=== PATIENT | female | born 1970 | race Caucasian/White ===

== ENCOUNTER 2017-12-18 05:20 | Inpatient (IN) | payer OTHER ==
[2017-12-18] MEDS ORDERED: DEXAMETHASONE 4 MG/ML 1 ML INJ ×2 (07:00→07:58)
[2017-12-18] MEDS ORDERED: CEFAZOLIN 1 GM INJ (07:00)
[2017-12-18] MEDS ORDERED: LIDOCAINE 2% (SDV) 5 ML INJ (07:00)
[2017-12-18] MEDS ORDERED: PROPOFOL 200 MG INJ (07:00)
[2017-12-18] MEDS ORDERED: morphine SULFATE/PF (10 MG/10 ML) INJ (07:06)
[2017-12-18] MEDS ORDERED: BUPIVACAINE 0.75%/DEXT (SPINAL) 2 ML INJ (07:06)
[2017-12-18] MEDS ORDERED: MIDAZOLAM 1 MG/ML 2 ML INJ (07:11)
[2017-12-18] MEDS ORDERED: ONDANSETRON 4 MG INJ (08:52)
[2017-12-18] MEDS ORDERED: SUGAMMADEX SODIUM 200 MG/2 ML VIAL IV (08:58)
[2017-12-18] MEDS ORDERED: EPHEDrine SULFATE 50 MG/5 ML SYG IV (09:30)
[2017-12-18] MEDS ORDERED: DIPHENHYDRAMINE 50 MG INJ IV (09:30)
[2017-12-18] MEDS ORDERED: HYDROmorphONE 0.5 MG/0.5 ML SYG IV (09:30)
[2017-12-18] MEDS ORDERED: hydrALAzine 20 MG INJ IV (09:30)
[2017-12-18] MEDS ORDERED: FENTAnyl 50 MCG/ML VIAL IV ×3 (09:30)
[2017-12-18] MEDS ORDERED: LABETALOL HCL 20MG INJ IV (09:30)
[2017-12-18] MEDS ORDERED: HYDROCODONE/APAP (5/325) TAB PO (09:30)
[2017-12-18] MEDS ORDERED: MEPERIDINE 25 MG INJ IV (09:30)
[2017-12-18] MEDS ORDERED: KETOROLAC 30 MG INJ IV (09:30)
[2017-12-18] MEDS ORDERED: ZOLPIDEM 5 MG TAB PO (09:30)
[2017-12-18] MEDS ORDERED: NALOXONE (0.4 MG/ML) INJ IV (09:30)
[2017-12-18] MEDS ORDERED: METOCLOPRAMIDE 10 MG INJ IV (09:30)
[2017-12-18] MEDS ORDERED: ALBUTEROL 0.083% (NEB) 2.5 MG/3 ML AMP HHN (09:30)
[2017-12-18] MEDS ORDERED: MIDAZOLAM 1 MG/ML 2 ML INJ IV (09:30)
[2017-12-18] MEDS ORDERED: OXYCODONE/ACETAMINOPHEN (5/325) TAB PO ×2 (09:30)
[2017-12-18] MEDS ORDERED: HYDROmorphONE (0.2 MG/ML) 10ML SYG IV ×3 (09:30)
[2017-12-18 09:56] LABS: ADD UMIC NO; UR ASCORBIC ACID NEGATIVE (NEGATIVE); UR BILIRUBIN (Dip) NEGATIVE (NEGATIVE); UR BLOOD (Dip) NEGATIVE (NEGATIVE); UR CLARITY CLEAR (CLEAR); UR COLOR STRAW (YELLOW); UR GLUCOSE (Dip) NEGATIVE (NEGATIVE); UR KETONES (Dip) NEGATIVE (NEGATIVE); UR LEUKOCYTE ESTERASE (Dip) NEGATIVE Leu/ul (NEGATIVE); UR NITRITE (Dip) NEGATIVE (NEGATIVE); UR SPECIFIC GRAVITY (Dip) 1.006 (1.003-1.030); UR TOTAL PROTEIN (Dip) NEGATIVE (NEGATIVE); UR UROBILINOGEN (Dip) NEGATIVE (NEGATIVE)
[2017-12-18] MEDS: ONDANSETRON 4 MG INJ IV ×2 (10:08→11:32)
[2017-12-18] MEDS: LACTATED RINGER'S 1,000 ML IV ×2 (11:53→22:08)
[2017-12-18] MEDS: DIPHENHYDRAMINE 50 MG INJ IV (12:08)
[2017-12-18] MEDS: KETOROLAC 30 MG INJ IV (22:07)
[2017-12-19 05:35] LABS: ADD MAN DIFF? NO
[2017-12-19 05:42] LABS: BASOPHILS % 0.1 % (0.0-2.0); HEMATOCRIT 33.2 % (37.0-47.0); HEMOGLOBIN 10.5 g/dl (12.0-16.0); LYMPHOCYTES # 0.8 10^3/ul (0.8-2.9); LYMPHOCYTES % 5.7 % (15.0-51.0); MEAN CORPUSCULAR HEMOGLOBIN 26.4 pg (29.0-33.0); MEAN CORPUSCULAR HGB CONC 31.6 g/dl (32.0-37.0); MEAN CORPUSCULAR VOLUME 83.4 fl (82.0-101.0); MEAN PLATELET VOLUME 10.4 fl (7.4-10.4); MONOCYTES % 7.1 % (0.0-11.0); NEUTROPHIL # 12.1 10^3/ul (1.6-7.5); NEUTROPHILS % 86.6 % (39.0-77.0); PLATELET COUNT 221 10^3/UL (140-415); RED BLOOD COUNT 3.98 10^6/ul (4.20-5.40); RED CELL DISTRIBUTION WIDTH 14.8 % (11.5-14.5)
[2017-12-19 06:07] LABS: ALANINE AMINOTRANSFERASE 19 IU/L (13-69); ALBUMIN 3.1 g/dl (3.3-4.9); ALKALINE PHOSPHATASE 62 IU/L (42-121); ANION GAP 10 (8-16); ASPARTATE AMINO TRANSFERASE 22 IU/L (15-46); BILIRUBIN,INDIRECT 0.6 mg/dl (0-1.1); BILIRUBIN,TOTAL 0.6 mg/dl (0.2-1.3); BLOOD UREA NITROGEN 8 mg/dl (7-20); CARBON DIOXIDE 27 mmol/L (21-31); CHLORIDE 110 mmol/L (97-110); CREATININE 0.66 mg/dl (0.44-1.00); GLUCOSE 96 mg/dl (70-220); POTASSIUM 4.9 mmol/L (3.5-5.1); SODIUM 142 mmol/L (135-144); TOTAL PROTEIN 5.9 g/dl (6.1-8.1)
[2017-12-19] MEDS: MAGNESIUM HYDROXIDE 30ML CUP PO ×2 (06:12→17:42)
[2017-12-19] MEDS: BISACODYL 10 MG SUPP PR ×2 (06:12→17:42)
[2017-12-19] MEDS: LACTATED RINGER'S 1,000 ML IV ×3 (06:12→20:00)
[2017-12-19] MEDS: HYDROmorphONE 0.5 MG/0.5 ML SYG IV (06:30)
[2017-12-19] MEDS: CEPASTAT LOZENGE MT (09:27)
[2017-12-19] MEDS ORDERED: OXYCODONE/ACETAMINOPHEN (5/325) TAB PO (09:30)
[2017-12-19] MEDS: OXYCODONE/ACETAMINOPHEN (5/325) TAB PO ×3 (11:08→22:21)
[2017-12-19] MEDS ORDERED: VITAMIN A & D 5 GM OINT PACKET TOP (14:34)
[2017-12-20] MEDS: LACTATED RINGER'S 1,000 ML IV ×3 (04:00→20:36)
[2017-12-20] MEDS: OXYCODONE/ACETAMINOPHEN (5/325) TAB PO ×2 (04:52→11:49)
[2017-12-20 05:28] LABS: ADD MAN DIFF? NO
[2017-12-20 05:30] LABS: BASOPHILS % 0.3 % (0.0-2.0); EOSINOPHILS % 0.2 % (0.0-7.0); HEMATOCRIT 31.2 % (37.0-47.0); HEMOGLOBIN 9.7 g/dl (12.0-16.0); LYMPHOCYTES # 1.7 10^3/ul (0.8-2.9); LYMPHOCYTES % 14.4 % (15.0-51.0); MEAN CORPUSCULAR HEMOGLOBIN 26.1 pg (29.0-33.0); MEAN CORPUSCULAR HGB CONC 31.1 g/dl (32.0-37.0); MEAN CORPUSCULAR VOLUME 83.9 fl (82.0-101.0); MEAN PLATELET VOLUME 10.7 fl (7.4-10.4); MONOCYTE # 0.9 10^3/ul (0.3-0.9); MONOCYTES % 7.6 % (0.0-11.0); NEUTROPHIL # 8.9 10^3/ul (1.6-7.5); NEUTROPHILS % 77.3 % (39.0-77.0); PLATELET COUNT 214 10^3/UL (140-415); RED BLOOD COUNT 3.72 10^6/ul (4.20-5.40); RED CELL DISTRIBUTION WIDTH 15.2 % (11.5-14.5)
[2017-12-20 05:30] LABS: WHITE BLOOD COUNT 11.5 10^3/ul (4.8-10.8)
[2017-12-20] MEDS: ONDANSETRON 4 MG INJ IV ×3 (09:40→20:38)
[2017-12-20] MEDS ORDERED: HYDROCODONE/APAP (5/325) TAB PO (18:30)
[2017-12-21] MEDS: LACTATED RINGER'S 1,000 ML IV (04:19)
[2017-12-21] MEDS: HYDROCODONE/APAP (5/325) TAB PO (06:24)
[2017-12-21] MEDS: ONDANSETRON 4 MG INJ IV (07:55)
[2017-12-21] MEDS: IBUPROFEN 600 MG TAB PO (15:06)
[2017-12-21] MEDS: MAGNESIUM HYDROXIDE 30ML CUP PO (18:51)
[2017-12-21] MEDS: BISACODYL 10 MG SUPP PR (18:52)
== END 2017-12-21 21:30 | disposition home or self-care (01) | DRG 337 ==
LOC: REC 05:20 → MS1 10:23
PROVIDERS: Obstetrics & Gynecology
PROC: 0UB90ZZ Excision of Uterus, Open Approach (ICD-10-PCS; principal; 2017-12-18 07:22)
PROC: 0DNU0ZZ Release Omentum, Open Approach (ICD-10-PCS; 2017-12-18 07:22)
PROC: 0UT50ZZ Resection of Right Fallopian Tube, Open Approach (ICD-10-PCS; 2017-12-18 07:22)
DX: R10.2 Pelvic and perineal pain (principal); D25.9 Leiomyoma of uterus, unspecified; N70.11 Chronic salpingitis; K66.0 Peritoneal adhesions (postprocedural) (postinfection)
CPT/HCPCS: 80053; 81003; 84702; 84703; 85025; 86850; 86900; 86901; 87086; 88305